=== PATIENT | female | born 1950 | race Caucasian/White ===

== ENCOUNTER 2021-07-13 12:12 | Emergency (ER) | payer OTHER ==
[~2021-07-13] VITALS: Ht 154.9 cm; Wt 104.8 kg
[~2021-07-13 12:12] MED LIST: ASPIRIN81 M2 PO; METOPROLOL SUCC25 M1 PO; NITROGLYCERIN0.4 MG SL; PAIN & FEVER325 MG PO; PEPCID40 MG PO; PLAVIX 75 MG TA75 MG PO; SYNTHROID; SYNTHROID88 MCG PO; VITAMIN D10000 UNIT PO; ZOCOR 20 MG TAB20 M1 PO
[2021-07-13 12:27] LABS: ABSOLUTE BASOPHILS 0.1 thou/uL (0.0-0.2); ABSOLUTE EOSINOPHILS 0.2 thou/uL (0.0-0.7); ABSOLUTE LYMPHOCYTES 4.6 thou/uL (0.8-5.3); ABSOLUTE NEUTROPHILS 5.9 thou/uL (1.6-8.1); EOSINOPHILS 1.8 %; LYMPHOCYTES 38.9 %; MCH 28.3 pg (26.0-34.0); MCHC 32.6 g/dL (28.0-37.0); MCV 86.9 fL (80.0-100.0); MONOCYTES 8.5 %; MPV 7.5 fl. (7.2-11.1); NUCLEATED RBCS 0 /100WBC; PLATELET COUNT* 321 thou/uL (150-400); POLYS 49.8 %; RBC 4.61 mil/uL (4.20-5.00); RDW-CV 14.8 % (10.5-14.5); WBC 11.9 thou/uL (4.0-11.0)
[2021-07-13 12:34] LABS: CALCIUM 9.3 mg/dL (8.5-10.1); POTASSIUM 3.6 mmol/L (3.5-5.1)
[2021-07-13 12:39] LABS: URINE BILIRUBIN NEGATIVE (Negative); URINE BLOOD 2+ (Negative); URINE CLARITY CLEAR; URINE COLOR YELLOW; URINE GLUCOSE-RANDOM NEGATIVE (Negative); URINE KETONES TRACE (Negative); URINE LEUKOCYTES-REFLEX NEGATIVE (Negative); URINE NITRITE-REFLEX NEGATIVE (Negative); URINE PROTEIN 1+ (Negative); URINE SPECIFIC GRAVITY >= 1.030 (1.005-1.030); URINE UROBILINOGEN 0.2 E.U./dl (0.2-1.0)
[2021-07-13 12:46] LABS: ALBUMIN 3.5 g/dL (3.4-5.0); TOTAL BILIRUBIN 0.3 mg/dL (<0.1-1.0); TOTAL PROTEIN 8.5 g/dL (6.4-8.2)
[2021-07-13 12:50] LABS: SQUAMOUS 4-10 Moderate /LPF (0-3)
[2021-07-13 12:51] LABS: BACTERIA-REFLEX 1-9 Few /HPF (None Seen); CASTS None Seen /LPF (None Seen); CRYSTALS None Seen /LPF (None Seen); MUCUS 4-6 Moderate strn/LPF (None Seen); URINE RBC 3-10 Few /HPF (0-2); URINE WBC-REFLEX 0-5 Rare /HPF (0-5)
[2021-07-13 13:18] VITALS: BP 156/89
--- NOTE | 2021-07-13 17:51 | EKG ---
[place] [address] ELECTROCARDIOGRAM REPORT Name: LYNCHFELIX Room: [facility]#: [id number] Admission: 07/13/21 Attend Phys: Discharge: 07/13/21 Date of : 52 Date of Service: 07/13/21 1218 Report #: [id number] THIS REPORT FOR: //name// [facility] ED Test Date: 2021-07-13 Test Time: 12:18:25 Pat Name: FELIX LYNCH Department: Room: Gender: Executive Advisor: [facility] : 1950 Requested By: Kev Parsons Order Number: [id number] MD: Juan M Walker Measurements Intervals [place] Rate: 107 P: 64 AL: 160 QRS: 37 QRSD: 85 T: 23 QT: 341 QTc: 455 Interpretive Statements Sinus tachycardia RSR' in V1 or V2, right VCD or RVH Baseline wander in lead(s) II,III,aVF Compared to ECG 11/06/2012 07:34:24 Right ventricular hypertrophy now present RSR' in V1 or V2 now present Sinus rhythm no longer present Ventricular premature complex(es) no longer present Electronically Signed On 07-13-2021 17:50:52 CDT by Juan M Walker [email or web address] <ELECTRONICALLY SIGNED> By: Juan M Walker MD, [facility] 07/13/21 1750 1218 1218 Juan M Walker MD, [facility] /EPI
== END 2021-07-13 13:19 | disposition home or self-care (01) ==
LOC: M.ERS 12:12
PROVIDERS: Family Medicine
DX: R42 Dizziness and giddiness (principal); R53.1 Weakness; R25.1 Tremor, unspecified; R00.2 Palpitations; Z86.16 Personal history of COVID-19; Z98.890 Other specified postprocedural states; Z87.42 Personal history of other diseases of the female genital tract; Z96.653 Presence of artificial knee joint, bilateral; Z79.899 Other long term (current) drug therapy; Z79.82 Long term (current) use of aspirin; Z88.2 Allergy status to sulfonamides

== ENCOUNTER 2021-10-02 07:26 | Inpatient (IN) | payer OTHER ==
[~2021-10-02] VITALS: Ht 157.5 cm; Wt 107.0 kg
[2021-10-02] VITALS (12 sets, daily range): BP systolic 116–163; BP diastolic 60–77
--- NOTE | ~2021-10-02 | EMS ---
[place] [address] EMS Patient Care Report Name: FELIX LYNCH Room: [facility]#: [id number] Admission: 10/02/21 Attend Phys: Discharge: Date of : 52 Report #: [id number] THIS REPORT FOR: //name// Report Transmitted: 10/02/2021 07:31 EMS Care Summary [facility] [employer] [facility] Incident [id number] @ 10/02/2021 06:32 Incident Location [address] [place] [address] Patient FELIX LYNCH Female, 71 Years 1950 Patient Address [address] [place] [address] Patient History Thyroid Disease,Hernia (Abdominal),Myocardial Infarction (DE), Patient Allergies Sulfa, Patient Medications Synthroid, ASA, Chief Complaint Chest pain Disposition Transported No Lights/[place] Dispatch Reason Chest Pain (Non-Traumatic) Transported To [facility] Narrative Dispatched to a residence for 71y/o female with chest pain. Upon arrival pt. was sitting in a chair, A&Ox4, with GCS 15. Pt. breathing appeared normal and color was pink. Pt. has history of DE. Pt. stated that she had been putting up [place] decorations all day yesterday and began having intermittent CP [place] [address] [place] [address] EMS Patient Care Report Name: FELIX LYNCH Room: [facility]#: [id number] Admission: 10/02/21 Attend Phys: Discharge: Date of : 52 Report #: [id number] woke her up several times throughout the night. Pt. described it as a mid sternal "ache" that radiated to her back. At it's worst was 5/10. Upon EMS arrival pain was 1/10. VS were stable. 12 lead EKG showed sinus rhythm. Breath sounds were clear and equal. Sternum was palpated and pain increased with palpation. Post ASA and NTG pt. pain had subsided, (pt. stated that pain went away after she repositioned). Pt. was transported to [place] for emergency and cardiac services. Initial Vitals @07:22 @06:57 @07:05P: 105,R: 18,BP: 146/63,GCS: 15,SpO2: 100,Revised Trauma: 12, @06:45 @07:20P: 116,R: 18,BP: 134/81,Pain: 0/10,GCS: 15,SpO2: 99,Revised Trauma: 12, @06:55P: 104,R: 18,BP: 171/85,GCS: 15,SpO2: 99,Revised Trauma: 12, @06:41P: 122,R: 18,BP: 168/92,Pain: 1/10,GCS: 15,Glucose: 164,SpO2: 100,Revised Trauma: 12, Impression Chest Pain / Discomfort Procedures @07:00 IV Therapy - Saline Lock 10cc (18 ga) Site: Antecubital-Right Response: UnchangedSucceeded @06:55 Aspirin - 324 Milligrams (mg) - Oral Response: Unchanged @07:05 Nitroglycerin - 0.4 Milligrams (mg) - Buccal Response: Improved @06:45 12-Lead ECG Response: UnchangedSucceeded @07:22 12-Lead ECG Response: UnchangedSucceeded @06:57 12-Lead ECG Response: UnchangedSucceeded Timeline 06:31,Call Received 06:32,Dispatched 06:36,En Route 06:38,Initial Responder On Scene 06:38,On Scene 06:40,At Patient 06:41,BP: 168/92 M,PULSE: 122,RR: 18 R,SPO2: 100 Ox,ETCO2: ,B,PAIN: 1,GCS: 15, 06:45,12-Lead ECG,Response: UnchangedSucceeded, 06:45,BP: / M,PULSE: ,RR: R,SPO2: Ox,ETCO2: ,BG: ,PAIN: ,GCS: , 06:55,Aspirin - 324 Milligrams (mg) - Oral,Response: Unchanged 06:55,BP: 171/85 M,PULSE: 104,RR: 18 R,SPO2: 99 Ox,ETCO2: ,BG: ,PAIN: ,GCS: 15, 06:57,12-Lead ECG,Response: UnchangedSucceeded, [place] [address] EMS Patient Care Report Name: FELIX LYNCH [id number] Admission: 10/02/21 Attend Phys: Discharge: Date of : 52 Report #: [id number] 06:57,BP: / M,PULSE: ,RR: R,SPO2: Ox,ETCO2: ,BG: ,PAIN: ,GCS: , 06:58,Depart Scene 07:00,IV Therapy - Saline Lock 10cc 18 ga Site: Antecubital-Right,Response: UnchangedSucceeded, 07:05,Nitroglycerin - 0.4 Milligrams (mg) - Buccal,Response: Improved 07:05,BP: 146/63 M,PULSE: 105,RR: 18 R,SPO2: 100 Ox,ETCO2: ,BG: ,PAIN: ,GCS: 15, 07:20,BP: 134/81 M,PULSE: 116,RR: 18 R,SPO2: 99 Ox,ETCO2: ,BG: ,PAIN: 0,GCS: 15, 07:21,At Destination 07:22,12-Lead ECG,Response: UnchangedSucceeded, 07:22,BP: / M,PULSE: ,RR: R,SPO2: Ox,ETCO2: ,BG: ,PAIN: ,GCS: , 07:23,Transfer Patient 07:36,Call Closed 07:52,In District Disclaimer v1.1 Copyright 2020 [employer] This EMS Care Summary contains data elements from the applicable legal record (which may be displayed differently). It is designed to provide pertinent information for the following purposes: continuity of care, clinical quality, and state data reporting. The complete legal record is available to ED staff and administrators of the receiving hospital in [employer]'s Patient Tracker. All data is provided "as is."
[~2021-10-02 07:26] MED LIST changes: +ACETAMINOPHEN325 M1 PO; +ASPIRIN EC81 M1 PO; -ASPIRIN81 M2 PO; -PAIN & FEVER325 MG PO; +SYNTHROID88 MC1 PO; -SYNTHROID88 MCG PO
[2021-10-02 08:08] LABS: ABSOLUTE EOSINOPHILS 0.2 thou/uL (0.0-0.7); ABSOLUTE LYMPHOCYTES 3.4 thou/uL (0.8-5.3); ABSOLUTE MONOCYTES 0.7 thou/uL (0.0-1.2); ABSOLUTE NEUTROPHILS 5.6 thou/uL (1.6-8.1); BASOPHILS 0.4 %; HEMATOCRIT 38.1 % (37.0-47.0); HEMOGLOBIN 12.4 gm/dL (12.0-15.0); LYMPHOCYTES 34.1 %; MCH 28.7 pg (26.0-34.0); MCHC 32.5 g/dL (28.0-37.0); MCV 88.1 fL (80.0-100.0); MONOCYTES 7.3 %; MPV 7.8 fl. (7.2-11.1); NUCLEATED RBCS 0 /100WBC; PLATELET COUNT* 330 thou/uL (150-400); POLYS 56.2 %; RBC 4.32 mil/uL (4.20-5.00); WBC 9.9 thou/uL (4.0-11.0)
[2021-10-02 08:20] LABS: CALCIUM 8.8 mg/dL (8.5-10.1); CREATININE 0.9 mg/dL (0.6-1.3); POTASSIUM 3.5 mmol/L (3.5-5.1)
[2021-10-02 08:30] LABS: ALBUMIN 3.2 g/dL (3.4-5.0); MAGNESIUM 2.2 mg/dL (1.8-2.4); TOTAL BILIRUBIN 0.3 mg/dL (<0.1-1.0); TOTAL PROTEIN 7.7 g/dL (6.4-8.2)
[2021-10-02 09:38] LABS: CHOLESTEROL 231 mg/dL (<200); HDL CHOLESTEROL 50 mg/dL (>40); LDL CHOLESTEROL 151 mg/dL (<100); TC:HDL 4.6 Ratio (Not establshd); TRIGLYCERIDE 154 mg/dL (<150); VLDL 31 mg/dL (<40)
[2021-10-02 09:45] LABS: SERUM ASSESSMENT Clear
--- NOTE | 2021-10-02 10:21 | EKG ---
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: [employer] : 1950 Requested By: Kev Parsons Order Number: [id number] MD: Lionel Mcknight Measurements Intervals [place] Rate: 90 P: PA: QRS: 51 QRSD: 94 T: 35 QT: 367 QTc: 449 Interpretive Statements sinus arrhythmia Abnormal R-wave progression, early transition Minimal ST depression, lateral leads Compared to ECG 07/13/2021 12:18:25 Sinus tachycardia no longer present Electronically Signed On 10-02-2021 10:21:25 DECK LID FITTER by Lionel Mcknight [email or web address] <ELECTRONICALLY SIGNED> By: Lionel Mcknight MD, FAC 10/02/21 1021 7 7 Lionel Mcknight MD, [facility] /EPI
[2021-10-03] VITALS: BP 142/72
[2021-10-03 04:00] VITALS: BP 137/73
[2021-10-03 04:53] LABS: HEMATOCRIT 37.7 % (37.0-47.0); HEMOGLOBIN 12.2 gm/dL (12.0-15.0); MCH 28.7 pg (26.0-34.0); MCHC 32.3 g/dL (28.0-37.0); MCV 88.9 fL (80.0-100.0); MPV 8.1 fl. (7.2-11.1); RBC 4.24 mil/uL (4.20-5.00); RDW-CV 14.8 % (10.5-14.5); WBC 9.9 thou/uL (4.0-11.0)
[2021-10-03 05:17] LABS: CALCIUM 8.6 mg/dL (8.5-10.1); CREATININE 0.8 mg/dL (0.6-1.3); POTASSIUM 3.6 mmol/L (3.5-5.1)
[2021-10-03 08:23] VITALS: BP 135/67
[2021-10-03] MEDS ORDERED: CLOPIDOGREL75 MG PO (09:14)
[2021-10-03] MEDS ORDERED: LOPRESSOR50 MG PO (09:14)
[2021-10-03] MEDS ORDERED: NITROGLYCERIN0.4 MG SL (09:14)
[2021-10-03] MEDS ORDERED: NEXLETOL180 MG PO (09:14)
--- NOTE | 2021-10-03 09:58 | EKG ---
[place] [address] ELECTROCARDIOGRAM REPORT Name: FELIX LYNCH Room: [address] ADM IN .R.#: [id number] Admission: 10/02/21 Attend Phys: Vivian Walters Discharge: Date of : 52 Date of Service: 10/02/21 1417 Report #: [id number] THIS REPORT FOR: //name// [facility] Test Date: 2021-10-02 Test Time: 14:17:55 Pat Name: FELIX LYNCH Department: Room: [facility] Gender: F Machine Biller: : 1950 Requested By: Lionel Mcknight Order Number: [id number] Reading MD: Lionel Mcknight Measurements Intervals [place] Rate: 79 P: 75 IA: 146 QRS: 44 QRSD: 84 T: 43 QT: 394 QTc: 452 Interpretive Statements Sinus rhythm Abnormal R-wave progression, early transition Compared to ECG 10/02/2021 07:28:50 Sinus arrhythmia no longer present ST (T wave) deviation no longer present Electronically Signed On 10-03-2021 9:58:25 TIP PUNCHER by Lionel Mcknight [email or web address] <ELECTRONICALLY SIGNED> By: Lionel Mcknight MD, FAC 10/03/21 0958 16 16 Lionel Mcknight MD, FAC /EPI
--- NOTE | 2021-10-03 10:01 | EKG ---
[place] [address] ELECTROCARDIOGRAM REPORT Name: LYNCHFELIX Room: [address] ADM IN .R.#: [id number] Admission: 10/02/21 Attend Phys: Vivian Walters Discharge: Date of : 52 Date of Service: 10/03/21 0419 Report #: [id number] THIS REPORT FOR: //name// [facility] Test Date: 2021-10-03 Test Time: 04:19:34 Pat Name: FELIX LYNCH Department: Room: [facility] Gender: F Health Promotion Coordinator: KRISTIE : 1950 Requested By: Lionel Mcknight Order Number: [id number] MD: Lionel Mcknight Measurements Intervals [place] Rate: 79 P: 75 PA: 138 QRS: 34 QRSD: 85 T: 27 QT: 383 QTc: 440 Interpretive Statements Sinus rhythm Consider left atrial enlargement Baseline wander in lead(s) V5 Compared to ECG 10/02/2021 14:17:55 No significant changes Electronically Signed On 10-03-2021 10:00:57 CONSERVATION PLANNER by Lionel Mcknight [email or web address] <ELECTRONICALLY SIGNED> By: Lionel Mcknight MD, FACC 10/03/21 1000 0419 0419 Lionel Mcknihgt MD, [facility] /EPI
--- NOTE | 2021-10-03 10:31 | CARD ---
[address] [address] CARDIAC CATH REPORT Name: FELIX LYNCH Room: [address] IN .R.#: [id number] Admission: 10/02/21 Attend Phys: Blu Torres Discharge: Date of : 52 Report #: [id number] THIS REPORT FOR: cc: Walt Moran Bradley L. DO Blick, David R. MD [facility] ~ APPROVED REPORT Study performed: 10/02/2021 12:26:32 Patient Details Patient Status: ED Room #: The patient is a 71 year-old female Event Personnel Lionel Mcknight Director Of Managed Services, Jose Forbes RN Border Measurer, Milvia Donaldson RN Monitor, Tana Luna RTR Scrub Procedures Performed Art Access - R radial artery Left Heart Cath w/or w/o Coronaries C CARMELA Place w/wo Plasty Single RCA Hemostasis with Hemoband Indication Unstable angina , Chest pain Risk Factors Hypercholesterolemia, Coronary Artery DiseaseHypertension Previous Procedures/Diagnoses Previous PCI Admission/Lab Medications/Medications given during procedure Glycoprotein IllbIlla Inhibitors, Heparin Unfract. Procedure Narrative The patient was brought urgently to the Cardiac Catheterization Laboratory and was prepped and draped in a sterile manner. The right wrist was infiltrated with 2% Lidocaine subcutaneous anesthesia. IV conscious sedation was used throughout procedure with appropriate monitoring and was performed in the presence of a registered nurse who was an independent trained observer other than the [place] [address] CARDIAC CATH REPORT Name: FELIX LYNCH Room: [address] IN [facility]#: [id number] Admission: 10/02/21 Attend Phys: Blu Torres Discharge: Date of : 52 Report #: [id number] performing the procedure. A Slender Glidesheath sheath was inserted into the right radial artery. Coronary angiography was performed using coronary diagnostic catheters. The right coronary system was accessed and visualized with a Diagnostic JR4 catheter. The left coronary system was accessed and visualized with a Diagnostic JL4 catheter. The left ventricle was accessed and visualized with a Diagnostic Pigtail catheter. Left ventricular/Aortic Valve gradient assessed via catheter pullback. Left ventriculogram was performed in GOTTI projection. Closure device was deployed with a 6 Fr vascband. The patient tolerated the procedure well and there were no complications associated with the procedure. There was no hematoma. Intraoperative Conscious Sedation Sedation start time: 12:43 Case end Time: 1359 Versed 2 mg Fluoro Time: 14.7 minutes Dose: 2493 mGy Contrast Type and Amount: Omnipaque 170 mL Coronary Angiography The patient's coronary anatomy is co- dominant. Diagnostic Cath Left Main 0% stenosis LAD 60% mid stenosis. The small apical LAD had a stent with a proximal edge restenosis of 80% and distal edge restenosis of 90% just proximal to the apex. Diagonal 1 medium sized vessel that bifurcated, and the small limb of the bifrucation had a 90% proximal stenosis. Circumflex 0% stenosis Right Coronary 90% proximal stenosis, and 90% mid stenosis just proximal to the RV branch. 99% distal stenosis just proximal to the distal bifurcation, with slow antegrade flow into the PDA branch. Left Ventriculography The left ventricular ejection fraction is estimated to be 60-65%. Left ventricular wall motion abnormalities are not present. There is no mitral insufficiency. Hemodynamics The aortic pressure is 160/72 mmHg with a mean of 111 mmHg. The left ventricular pressure is 160/18 mmHg with [place] [address] CARDIAC CATH REPORT Name: FELIX LYNCH [place] Room: [address] IN [facility]#: [id number] Admission: 10/02/21 Attend Phys: Blu Torres Discharge: Date of : 52 Report #: [id number] ventricular end diastolic pressure is 17 mmHg. There was no gradient across the aortic valve upon pullback. Pullback from the left ventricle to the aorta revealed no gradient across the aortic valve. PCI Technique Lesion Anticoagulation was achieved with Heparin. bolus of IV aggrastat given Percutaneous coronary intervention was performed on the distal right coronary artery. The lesion stenosis prior to intervention was 99% with MAHAD 2 flow. A 6Fr AR 1 Guide Catheter was used to engage the right ostium. A IG: BMW 190cm Interventional Guidewire was used to cross the lesion. BALLOON DILATION Unable to cannulate with a xbrca guide. STENT DEPLOYMENT A drug-eluting stent Marcell[place] RX Stent 2.0X12mm was inserted and inflated up to 12.00atm for 14seconds. Repeat angiography revealed the following post-stent deployment results: 0% stenosis noted. Additional Inflation: 15.00atm for 13seconds. The Stent Balloon was then utilized in the Mid RCA to predilate the lesion in the mRCA. Stent Balloon was inflated to 18 pito for 10 sec. Additional Inflation 18atm for 8 sec. Final angiography reveals 0 % stenosis with MAHAD 3 flow. COMMENTS After placing the stent in the distal RCA that extended into the PDA branch, the stent covered the takeoff of the small COOKIE branch that now was noted to have a 80% ostial stenosis that persisted despite IC Nitro, felt to be secondary to plaque shift after placing the stent across its ostium. The patient was asymptomatic, and aditional PTCA of the small COOKIE branch was not recommended. PCI Technique Lesion 2 Percutaneous Coronary Intervention was performed on the proximal right coronary artery. Percutaneous coronary intervention was performed on the proximal to mid right coronary artery. The lesion stenosis prior to intervention was 90% with MAHAD 1 flow. A 6Fr AR 1 Guide Catheter was used to engage the rca ostium. A IG: BMW 190cm Interventional Guidewire was used to cross the lesion. Balloon Dilation [place] [address] CARDIAC CATH REPORT Name: FELIX LYNCH Room: [address] IN [facility]#: [id number] Admission: 10/02/21 Attend Phys: Blu Torres Discharge: Date of : 52 Report #: [id number] A Balloon catheter yx RX Stent Balloon Catheter2.0X12mm was inserted and inflated up to 18.00atm for 10seconds. Repeat angiography revealed the following post-dilatation results: 60% stenosis. Additional Inflation: 18.00atm for 8seconds. Stent Deployment A drug-eluting stent [place] RX stent 2.88o04rg was inserted and inflated up to 13.00atm for 16seconds. Repeat angiography revealed the following post-stent deployment results: 0% stenosis. Additional Inflation: 14.00atm for 8seconds. Additional Inflation: 16.00atm for 15seconds. Final angiography reveals 0 % stenosis with MAHAD 3 flow. Conclusion 1. Patent stent in the distal LAD. 2. 90% proximal, 90% mid, and 99% distal stenosis of the RCA with slow antegrade flow. 3. successful placement of drug eluting stents in the distal and proximal RCA. 4. LVEF 60-65% Recommendations Cardiac Rehabilitation Referral Aggressive Medical Therapy Medications Administered Clopidogrel <ELECTRONICALLY SIGNED> By: Lionel Mcknight MD, FACC 10/03/21 1031 1031 1031Dalmaz Mcknight MD, FACC /INF
[2021-10-03 13:39] VITALS: BP 135/67
== END 2021-10-03 14:15 | disposition home or self-care (01) | DRG 246 ==
LOC: M.ERS 07:26 → M.TBA-ER 09:04 → M.2W 15:08
PROVIDERS: Family Medicine; Internal Medicine Cardiovascular Disease; Registered Nurse; ADMIT Internal Medicine; ATTEND Internal Medicine
PROC: 4A023N7 Measurement of Cardiac Sampling and Pressure, Left Heart, Percutaneous Approach (ICD-10-PCS; principal; 2021-10-02)
PROC: B2151ZZ Fluoroscopy of Left Heart using Low Osmolar Contrast (ICD-10-PCS; principal; 2021-10-02)
PROC: 027035Z Dilation of Coronary Artery, One Artery with Two Drug-eluting Intraluminal Devices, Percutaneous Approach (ICD-10-PCS; principal; 2021-10-02)
PROC: B2111ZZ Fluoroscopy of Multiple Coronary Arteries using Low Osmolar Contrast (ICD-10-PCS; principal; 2021-10-02)
DX: I21.4 Non-ST elevation (NSTEMI) myocardial infarction (principal); I50.31 Acute diastolic (congestive) heart failure; I47.1 Supraventricular tachycardia; Z68.41 Body mass index [BMI] 40.0-44.9, adult; I11.0 Hypertensive heart disease with heart failure; I25.110 Atherosclerotic heart disease of native coronary artery with unstable angina pectoris; E78.5 Hyperlipidemia, unspecified; E66.01 Morbid (severe) obesity due to excess calories; R73.03 Prediabetes; E03.9 Hypothyroidism, unspecified; Z96.653 Presence of artificial knee joint, bilateral; Z20.822 Contact with and (suspected) exposure to COVID-19; I25.2 Old myocardial infarction; Z79.899 Other long term (current) drug therapy; Z79.82 Long term (current) use of aspirin; Z88.2 Allergy status to sulfonamides; Z95.5 Presence of coronary angioplasty implant and graft